=== PATIENT | male | born 1985 | race Caucasian/White ===

== ENCOUNTER 2022-08-08 15:29 | Emergency (ER) | payer OTHER, SELFPAY ==
--- NOTE | ~2022-08-08 | XR_ITS ---
EXAMINATION: XR ankle LT min 3V DATE: 08/08/2022 15:56 INDICATION: Left ankle pain TECHNIQUE: Anteroposterior, lateral, mortise, and additional oblique view of the ankle were obtained. COMPARISON: None. FINDINGS: There is soft tissue swelling of ankle. Bone alignment is normal. There is no fracture. No osteochondral lesion is identified. A posterior calcaneal enthesophyte is noted. IMPRESSION: 1. Ankle soft tissue swelling without acute osseous abnormality. Reviewed, dictated and finalized at location F.
[2022-08-08 15:43] VITALS: BP 142/82; PULSE 93; RESP 18; TEMP 36.4; O2SAT 99
--- NOTE | 2022-08-08 15:49 | ED.LOWEXIN ---
HPI - Extremity Injury (Lower) General Chief Complaint: Extremity Injury, Lower Stated Complaint: lt ankle injury Source: patient Mode of arrival: ambulatory Limitations: no limitations History of Present Illness HPI Narrative: 37 y/o male presented for c/o left foot and ankle pain after injury today about 7 hours [employer]. States he stepped into a hole at a job site, causing him to roll the ankle and fall about 3 feet onto the foot. He continued to work all day, stating he limped and beared minimal weight. Pt reports swelling and bruising to the outside of the ankle. Has taken ibuprofen and applied ice today. Rates pain 8/10. Pain is worse with any movement of the ankle. Denies numbness, tingling, weakness. Related Data Home Medications Medication Instructions Recorded Confirmed No Home Medications 08/08/22 08/08/22 Allergies Allergy/AdvReac Type Severity Reaction Status Date / Time No Known Allergies Allergy Verified 08/08/22 15:45 Review of Systems Review of Systems: CONSTITUTIONAL: Denies body aches, fever, chills EYES: Denies visual changes ENT: Denies rhinorrhea, congestion CARDIOVASCULAR: Denies chest pain, palpitations, or edema. RESPIRATORY: Denies cough or dyspnea. GASTROINTESTINAL: Denies abdominal pain, nausea, vomiting, or diarrhea. SKIN: Denies rash, itching, or wounds. MUSCULOSKELETAL: per HPI NEUROLOGIC: Denies headache, numbness, tingling, or weakness. All systems reviewed & are unremarkable except as noted in HPI and below PMFSH Past Medical History Medical History (Updated 08/08/22 @ 16:15 by Suzi Rogel, LIZZETTE) No pertinent past medical history Comments At time of signature, I have reviewed and agree with nursing past medical, surgical, social and family history unless otherwise noted. Please see nursing chart for further information. There is no relevant family history pertinent to the presenting complaint Exam Narrative: GENERAL: Well-appearing, and in no acute distress. HEAD: Normocephalic, atraumatic. EYES: PERRLA, conjunctivae clear NECK: Supple. CHEST: Speaks in full sentences. No respiratory distress. HEART: Regular rate and rhythm. Normal and equal peripheral pulses. EXTREMITIES: Left foot has normal strength and sensation, limited range of motion at ankle endorses pain with movement. Moderate swelling and ecchymosis to lateral aspect of ankle, No point tenderness. No open wounds or obvious deformity; alignment normal, pulse palpable and equal bilaterally, skin warm, dry, pink. Capillary refill less than 3 seconds. SKIN: Warm, dry, no rash. NEURO: Alert and oriented x3. Course Course Emergency Course: Patient is aware of diagnosis, understands and agrees to treatment plan. Anticipatory guidance given. Patient agrees to follow-up as directed and is aware of reasons to seek care at the emergency department. Portions of this record may have been created with voice recognition software Level of Care: Express Care Visit Vital Signs Vital signs: Vital Signs Temperature 97.6 F 08/08/22 15:43 Pulse Rate 93 08/08/22 15:43 Respiratory Rate 18 08/08/22 15:43 Blood Pressure 142/82 H 08/08/22 15:43 Pulse Oximetry 99 08/08/22 15:43 Oxygen Delivery Room Air 08/08/22 15:43 Temperature 97.6 F 08/08/22 15:43 Pulse Rate 93 08/08/22 15:43 Respiratory Rate 18 08/08/22 15:43 Blood Pressure 142/82 H 08/08/22 15:43 Pulse Oximetry 99 08/08/22 15:43 Oxygen Delivery Room Air 08/08/22 15:43 Reviewed Procedures Orthopedic Splinting/Casting Left ankle: Lower Extremity Immobilizer: Narayan wrap MDM - Extremity Injury (Lower) MDM Narrative Medical decision making narrative: Results of x-ray reviewed with patient. Applied Narayan wrap. Advised supportive measures and signs/symptoms to go to the ER. Pt is appropriate for outpt treatment and f/u. Differential Diagnosis Differential diagnosis: Likely ankle sprain and strain and ankle frac
== END 2022-08-08 16:15 | disposition home or self-care (01) ==
PROVIDERS: Emergency Provider Nurse Practitioner Family
DX: S93.402A Sprain of unspecified ligament of left ankle, initial encounter (principal); S96.912A Strain of unspecified muscle and tendon at ankle and foot level, left foot, initial encounter; X50.9XXA Other and unspecified overexertion or strenuous movements or postures, initial encounter; Y99.0 Civilian activity done for income or pay
CPT/HCPCS: 73610; 99203; G0463